=== PATIENT | female | born 1980 | race Caucasian/White ===

== ENCOUNTER 2017-11-13 09:02 | Emergency (ER) ==
[2017-11-13 09:14] VITALS: BP 104/72; TEMP 97.4; BMI 23.6
--- NOTE | 2017-11-13 09:23 | ED.PDOC ---
General ED Provider: Dr. ALLEY CALDERON Chief Complaint: Respiratory Complaint Stated Complaint: Cough and congestion. States evaluated by her pcp in [place] last week and had MRI scan to evaluate headache . Was dx with acute sinusitis which was identified on CT scan. Started on Cefuoxime 500mg bid. Now continues to have experiece cough and congeston. Denies fever or chills. Time Seen by Physician: 09:45 Mode of Arrival: Walk-In Information Source: Patient Exam Limitations: No limitations Primary Care Provider: MARIUM DWEEY Nursing and Triage Documentation Reviewed and Agree: Yes Does patient meet sepsis criteria?: No System Inflammatory Response Syndrome: Not Applicable Sepsis Protocol: For patient's 13 years and over: Temp is 96.8 and below OR 101 and greater Pulse >90 BPM Resp >20/minute Acutely Altered Mental Status Are patient's symptoms suggestive of a new infection, such as: -Pneumonia -Skin, Soft Tissue -Endocarditis -UTI -Bone, Joint Infection -Implantable Device -Acute Abdominal Infection -Wound Infection -Meningitis -Blood Stream Catheter Infection -Unknown Respiratory Complaint Exam - Respiratory Complaint/Exam Symptoms Are: Still present Timing: Constant Initial Severity: Moderate Current Severity: Moderate Location: Throat, Chest Character: Reports: Non-productive cough Aggravating: Reports: URI Associated Signs and Symptoms: Reports: Sinus discomfort. Denies: Rapid breathing, Dyspnea, Fever, Chills, Chest pain, Pleuritic chest pain, Wheezing, Hemoptysis, Dizziness, Calf pain, Calf swelling, Edema, URI, Nasal congestion, Hoarseness, Vomiting, Sore throat, Weight loss, Decreased oral intake, Increased thirst, Increased appetite, Increased urination Related History: Reports: Similar episode Related Surgical History: Reports: None Pulmonary Embolism Risk Factors: None Cardiac Risk Factors: Reports: None Pseudomonas Risk Factors: Reports: None Tuberculosis Risk Factors: Reports: None Status Asthmaticus Risk Factors: Reports: None Home Oxygen Use: No Current Antibiotic Use: Yes Current Asthma Medication Use: No Respiratory Distress: None Inadequate Respiratory Effort: No Dysphagia Present: No Stridor Present: No JVD Present: No Accessory Muscle Use: No Retractions: Not Present Diminished Breath Sounds: No Differential Diagnoses: Sinusitis Review of Systems - Review Of Systems Constitutional: Reports: No symptoms, Malaise Eyes: Reports: No symptoms Ears, Nose, Mouth, Throat: Reports: No symptoms Respiratory: Reports: No symptoms, Cough Cardiac: Reports: No symptoms GI: Reports: No symptoms : Reports: No symptoms Musculoskeletal: Reports: No symptoms Skin: Reports: No symptoms Neurological: Reports: No symptoms Endocrine: Reports: No symptoms Hematologic/Lymphatic: Reports: No symptoms All Other Systems: Reviewed and Negative Past Medical History - Past Medical History Previously Healthy: Yes Endocrine: Reports: None Cardiovascular: Reports: None Respiratory: Reports: None Hematological: Reports: None Gastrointestinal: Reports: None Genitourinary: Reports: None Neuro/Psych: Reports: None Musculoskeletal: Reports: None Cancer: Reports: None Last Menstrual Period: unknown - Surgical History General Surgical History: Reports: None - Family History Family History: Reports: None - Social History Smoking Status: Former smoker Hx Substance Use: No Alcohol Screening: None Physical Exam - Physical Exam Appearance: Ill-appearing Ill-appearing: Mild Pain Distress: None ENT: Ears normal, Nose normal, Erythema (oral pharynx without exudate) Respiratory: Airway patent, Breath sounds clear, Breath sounds equal, Respirations nonlabored Cardiovascular: RRR, Pulses normal, No rub, No murmur GI/: Soft, Nontender, No masses, Bowel sounds normal, No Organomegaly Musculoskeletal: Normal strength, ROM intact, No edema, No calf tenderness Skin: Warm, Dry, Normal color Neurological: Sensation intact, Motor intact, Reflexes intact, Cranial nerves intact, Alert, Oriented Psychiatric: Affect appropriate, Mood appropriate Critical Care Note - Critical Care Note Total Time (mins): 0 Course - Course Hematology/Chemistry: 11/13/17 10:55 11/13/17 10:55 Orders, Labs, Meds: Lab Review 11/13/17 11/13/17 10:55 10:55 WBC 4.92 RBC 4.74 Hgb 14.5 Hct 42.6 MCV 89.9 MCH 30.6 MCHC 34.0 RDW Coeff of Dileep 12.7 Plt Count 282 Immature Gran % (Auto) 0.2 Neut % (Auto) 57.3 Lymph % (Auto) 30.1 [place] % (Auto) 10.6 H Eos % (Auto) 0.8 Baso % (Auto) 1.0 Immature Gran # (Auto) 0.0 Neut # (Auto) 2.8 Lymph # (Auto) 1.5 [place] # (Auto) 0.5 Eos # (Auto) 0.0 Baso # (Auto) 0.1 ESR Pending Sodium 138.9 Potassium 3.77 Chloride 103.3 Carbon Dioxide 28.7 Anion Gap 10.67 BUN 7.8 Creatinine 0.86 Estimated GFR (MDRD) 75.00 BUN/Creatinine Ratio 9.06 Glucose 92.0 Calcium 9.29 Total Bilirubin 0.27 AST 24.1 ALT 18.4 Alkaline Phosphatase 108.2 Total Protein 7.26 Albumin 4.07 Globulin 3.19 Albumin/Globulin Ratio 1.27 Orders Category Date Time Status CBC W/ AUTO DIFF Stat LAB 11/13/17 10:55 Results CMP [COMPREHENSIVE METABOLIC PANEL] Stat LAB 11/13/17 10:55 Completed ESR Stat LAB 11/13/17 10:55 Results CHEST, 1V AP ONLY Stat RADS 11/13/17 10:35 Completed Vital Signs: Temp Pulse Resp BP Pulse Ox 11/13/17 09:03 97.4 F L 93 H 20 104/72 96 Departure - Departure Time of Disposition: 11:30 Disposition: HOME SELF-CARE Discharge Problem: Sinusitis, Pharyngitis Instructions: Antihistamine/Decongestant (By mouth), Sinusitis (ED) Condition: Fair Pt referred to PMD for follow-up: Yes (1 week) IPMP verified?: No Additional Instructions: Remain on antibiotics Begin Steroid Dose Pack MEDROL DOSE PACK - TAKE DIRECTED Mucinex otc twice daily Prescriptions: Methylprednisolone [Medrol Dosepak] 4 mg PO DIRECTED #1 tab.ds.pk Allergies/Adverse Reactions: Allergies codeine Adverse Reaction (Verified 11/13/17 09:13) Home Medications: Ambulatory Orders Dextroamphetamine/Amphetamine [Adderall 15 mg Tablet] 15 mg PO DAILY 11/13/17 Diazepam [Valium] 10 mg PO BEDTIME 11/13/17 Hydrocodone/Acetaminophen [Hydrocodon-Acetaminophn 10-325] 1 each PO TID PRN Methylprednisolone [Medrol Dosepak] 4 mg PO DIRECTED #1 tab.ds.pk 11/13/17 Disposition Discussed With: Patient, Family
--- NOTE | 2017-11-13 10:51 | DI ---
EXAM: Chest one view, frontal view only. HISTORY: Cough. COMPARISON: 02/13/2010. FINDINGS: The heart size is normal. There is no pulmonary vascular congestion. The lungs are clear . No pleural effusion or pneumothorax is seen. No acute osseous abnormality is identified. Since t he prior study, there has been no significant interval change. IMPRESSION: No acute cardiopulmonary process.
== END 2017-11-13 11:46 | disposition home or self-care (01) ==
LOC: ED 09:02
DX: J32.9 Chronic sinusitis, unspecified (principal); J02.9 Acute pharyngitis, unspecified
CPT/HCPCS: 36415; 80053; 85025; 85651; 99283

== ENCOUNTER 2018-01-03 18:38 | Emergency (ER) ==
[2018-01-03 18:45] VITALS: BMI 23.8
[2018-01-03] MEDS ORDERED: DILAUDID 1 MG/ML SYRINGE IVP STA (19:06)
[2018-01-03] MEDS ORDERED: SODIUM CHLORIDE 1,000 ML IV STA (19:06)
[2018-01-03] MEDS ORDERED: PROTONIX IV IVP STA (19:06)
[2018-01-03] MEDS ORDERED: ZOFRAN 4 MG/2 ML IVP STA (19:06)
--- NOTE | 2018-01-03 19:11 | ED.PDOC ---
General ED Provider: Dr. JHONATHAN DAVID Chief Complaint: Abdominal Pain Stated Complaint: Patient is a 37 year old female who states jerald she has had severe progressive right lower quadrant abdominal pain for 4 days. She was seen at the clinic but has not improved. Time Seen by Physician: 19:09 Mode of Arrival: Walk-In Information Source: Patient Exam Limitations: No limitations Primary Care Provider: MARIUM DEWEY Nursing and Triage Documentation Reviewed and Agree: Yes Does patient meet sepsis criteria?: Yes If yes, has appropriate treatment been initiated?: Yes System Inflammatory Response Syndrome: Temp 96.8F or Lower, Pulse >90 BPM Sepsis Protocol: For patient's 13 years and over: Temp is 96.8 and below OR 101 and greater Pulse >90 BPM Resp >20/minute Acutely Altered Mental Status Are patient's symptoms suggestive of a new infection, such as: -Pneumonia -Skin, Soft Tissue -Endocarditis -UTI -Bone, Joint Infection -Implantable Device -Acute Abdominal Infection -Wound Infection -Meningitis -Blood Stream Catheter Infection -Unknown GI Complaint Exam - Abdominal Pain Complaint/Exam Onset: Gradual Duration: 3-4 days Symptoms Are: Still present Timing: Constant Initial Severity: Moderate Current Severity: Severe Location of Pain: RLQ, Suprapubic Radiates To: Reports: Back Character: Reports: Aching, Throbbing Aggravating: Reports: None Alleviating: Reports: None Associated Signs and Symptoms: Reports: Nausea, Vomiting. Denies: Diaphoresis, Fever, Cough, Chest pain, Dizziness, Back pain, Constipation, Blood in stool, Dysuria, Urinary frequency, Decreased urine output, Decreased appetite, Vaginal bleeding, Vaginal discharge, Diarrhea, Sore throat, Decreased activity AAA Risk Factors: Reports: None Cardiac Risk Factors: Reports: None Ectopic Risk Factors: Reports: None Ovarian Torsion Risk Factors: Reports: Hysterectomy Surgical Obstruction Risk Factors: Reports: Bilious emesis, Prior abdominal surgery Related Surgical History: Reports: Cholecystectomy, Appendectomy Patient Rh Status: Unknown Abdominal Findings: Present: Other (mild tenderness to palpation ) Differential Diagnoses: Bowel Obstruction, UTI Review of Systems - Review Of Systems Constitutional: Reports: No symptoms Eyes: Reports: No symptoms Ears, Nose, Mouth, Throat: Reports: No symptoms Respiratory: Reports: No symptoms Cardiac: Reports: No symptoms GI: Reports: Abdominal pain, Nausea, Vomiting : Reports: Dysuria Musculoskeletal: Reports: No symptoms Skin: Reports: No symptoms Neurological: Reports: Anxiety Endocrine: Reports: No symptoms Hematologic/Lymphatic: Reports: No symptoms All Other Systems: Reviewed and Negative Past Medical History - Past Medical History Previously Healthy: Yes Endocrine: Reports: None Cardiovascular: Reports: None Respiratory: Reports: None Hematological: Reports: None Gastrointestinal: Reports: None Genitourinary: Reports: None Neuro/Psych: Reports: None Musculoskeletal: Reports: None Cancer: Reports: None Last Menstrual Period: none - Surgical History General Surgical History: Reports: Hysterectomy, , Appendectomy, Cholecystectomy, Orthopedic (Knee reconstruction ) - Family History Family History: Reports: None - Social History Smoking Status: Former smoker Hx Substance Use: No Alcohol Screening: None - Immunizations Tetanus Shot up to Date: Yes Physical Exam - Physical Exam Appearance: Ill-appearing Ill-appearing: Moderate Pain Distress: Severe Neck: Supple Respiratory: Airway patent, Breath sounds clear, Breath sounds equal, Respirations nonlabored Cardiovascular: No rub, No murmur, Tachycardia GI/: Soft, Tender (mild ) Musculoskeletal: Normal strength, ROM intact, No edema, No calf tenderness Skin: Warm, Dry, Normal color Neurological: Sensation intact, Motor intact, Reflexes intact, Cranial nerves intact, Alert, Oriented Psychiatric: Anxious Interpretation - Radiology Interpretation Radiology Interpretation By: Radiologist Radiology Results: No acute changes Exam Interpreted: CT Scan Critical Care Note - Critical Care Note Total Time (mins): 0 Course - Course Hematology/Chemistry: 01/03/18 19:10 01/03/18 19:10 Orders, Labs, Meds: Lab Review 01/03/18 01/03/18 01/03/18 18:50 19:10 19:10 WBC 14.20 H RBC 4.55 Hgb 13.7 Hct 39.7 MCV 87.3 MCH 30.1 MCHC 34.5 RDW Coeff of Dileep 12.8 Plt Count 349 Immature Gran % (Auto) 0.4 Neut % (Auto) 79.7 Lymph % (Auto) 12.5 [place] % (Auto) 6.8 Eos % (Auto) 0.1 Baso % (Auto) 0.5 Immature Gran # (Auto) 0.1 Neut # (Auto) 11.3 H Lymph # (Auto) 1.8 [place] # (Auto) 1.0 Eos # (Auto) 0.0 Baso # (Auto) 0.1 Sodium 135.6 L Potassium 3.62 Chloride 101.7 Carbon Dioxide 26.6 Anion Gap 10.92 BUN 13.6 Creatinine 1.04 Estimated GFR (MDRD) 60.00 BUN/Creatinine Ratio 13.07 Glucose 114.2 H Lactic Acid Calcium 9.43 Total Bilirubin 0.79 AST 24.5 ALT 17.3 Alkaline Phosphatase 123.7 Total Protein 7.34 Albumin 4.20 Globulin 3.14 Albumin/Globulin Ratio 1.33 Amylase 60.1 Lipase 44.9 Procalcitonin Urine Color Yellow Urine Clarity Cloudy Urine pH 6.0 Ur Specific [place] 1.020 Urine Protein 2+ Urine Glucose (UA) Negative Urine Ketones Negative Urine Blood 2+ Urine Nitrite Negative Urine Bilirubin Negative Urine Urobilinogen 0.2 Ur Leukocyte Esterase 1+ Urine Microscopic RBC 5-10 Urine Microscopic WBC 10-20 Ur Squamous Epith Cells 2-5 Urine Bacteria Trace 01/03/18 01/03/18 19:10 19:10 WBC RBC Hgb Hct MCV MCH MCHC RDW Coeff of Dileep Plt Count Immature Gran % (Auto) Neut % (Auto) Lymph % (Auto) [place] % (Auto) Eos % (Auto) Baso % (Auto) Immature Gran # (Auto) Neut # (Auto) Lymph # (Auto) [place] # (Auto) Eos # (Auto) Baso # (Auto) Sodium Potassium Chloride Carbon Dioxide Anion Gap BUN Creatinine Estimated GFR (MDRD) BUN/Creatinine Ratio Glucose Lactic Acid 1.33 Calcium Total Bilirubin AST ALT Alkaline Phosphatase Total Protein Albumin Globulin Albumin/Globulin Ratio Amylase Lipase Procalcitonin 0.18 Urine Color Urine Clarity Urine pH Ur Specific [place] Urine Protein Urine Glucose (UA) Urine Ketones Urine Blood Urine Nitrite Urine Bilirubin Urine Urobilinogen Ur Leukocyte Esterase Urine Microscopic RBC Urine Microscopic WBC Ur Squamous Epith Cells Urine Bacteria Orders Category Date Time Status ED IV/MEDIPORT/POWERPORT .ONCE EMERGENCY 01/03/18 19:06 Active AMYLASE Stat LAB 01/03/18 19:10 Completed BLOOD CULTURE (ED ONLY) Stat LAB 01/03/18 19:10 Received CBC W/ AUTO DIFF Stat LAB 01/03/18 19:10 Completed COMPREHENSIVE METABOLIC PANEL Stat LAB 01/03/18 19:10 Completed LACTIC ACID Stat LAB 01/03/18 19:10 Completed LIPASE Stat LAB 01/03/18 19:10 Completed PROCALCITONIN Stat LAB 01/03/18 19:10 Received URINALYSIS C & S IF INDICATED Stat LAB 01/03/18 18:50 Completed URINE CULTURE Stat LAB 01/03/18 19:39 Received 0.9 % Sodium Chloride [Saline Flush] MEDS 01/03/18 19:06 Ordered 1 syr IVF PRN PRN Hydromorphone HCl [Dilaudid 1 mg/ml Syringe] MEDS 01/03/18 19:43 Stat 1 mg IM ONCE STA Hydromorphone HCl [Dilaudid 1 mg/ml Syringe] MEDS 01/03/18 19:06 Discontinued 1 mg IVP ONCE STA Ketorolac Tromethamine [Toradol] MEDS 01/03/18 19:43 Stat 30 mg IVP ONCE STA Ondansetron HCl/Pf [Zofran 4 mg/2 ml] MEDS 01/03/18 19:06 Discontinued 4 mg IVP ONCE STA Pantoprazole Sodium [Protonix IV] MEDS 01/03/18 19:06 Discontinued 40 mg IVP ONCE STA Sodium Chloride 0.9% [Sodium Chloride] 1,000 ml MEDS 01/03/18 19:[address] ABD/PEL WO RENAL STONE PROT Stat RADS 01/03/18 19:06 Ordered Medications Generic Name Dose Route Start Last Admin Trade Name Freq PRN Reason Stop Dose Admin Sodium Chloride 1 syr 01/03/18 19:06 Saline Flush IVF PRN PRN To flush IV Discontinued Medications Generic Name Dose Route Start Last Admin Trade Name Freq PRN Reason Stop Dose Admin Hydromorphone HCl 1 mg 01/03/18 19:06 01/03/18 19:16 Dilaudid 1 Mg/Ml Syringe IVP 01/03/18 19:07 1 mg ONCE STA Administration Hydromorphone HCl 1 mg 01/03/18 19:43 Dilaudid 1 Mg/Ml Syringe IM 01/03/18 19:44 ONCE STA Sodium Chloride 1,000 mls @ 1,000 mls/hr 01/03/18 19:06 01/03/18 19:16 Sodium Chloride IV 01/03/18 20:05 1,000 mls/hr BOLUS STA Administration Ketorolac Tromethamine 30 mg 01/03/18 19:43 01/03/18 19:49 Toradol IVP 01/03/18 19:44 30 mg ONCE STA Administration Ondansetron HCl 4 mg 01/03/18 19:06 01/03/18 19:16 Zofran 4 Mg/2 Ml IVP 01/03/18 19:07 4 mg ONCE STA Administration Pantoprazole Sodium 40 mg 01/03/18 19:06 01/03/18 19:16 Protonix Iv IVP 01/03/18 19:07 40 mg ONCE STA Administration Vital Signs: Temp Pulse Resp BP Pulse Ox 01/03/18 19:19 92 H 117/69 01/03/18 18:39 100.8 F H 111 H 22 118/73 97 Departure - Departure Time of Disposition: 21:00 Disposition: HOME SELF-CARE Discharge Problem: Abdominal pain UTI (urinary tract infection) Qualifiers: Urinary tract infection type: acute cystitis Hematuria presence: with hematuria Qualified Code(s): N30.01 - Acute cystitis with hematuria Instructions: Acute Abdominal Pain (ED), Urinary Tract Infection in Women (ED) Condition: Stable Pt referred to PMD for follow-up: Yes IPMP verified?: No Additional Instructions: Take pain medications as prescribed Follow up with PCP in 3 days Prescriptions: Hydrocodone Bit/Acetaminophen [[place] 5-325] 1 each PO Q6HR PRN #15 tablet PRN Reason: severe pain Levofloxacin [Levaquin] 500 mg PO DAILY #7 tablet Allergies/Adverse Reactions: Allergies codeine Adverse Reaction (Verified 11/13/17 09:13) Home Medications: Ambulatory Orders Dextroamphetamine/Amphetamine [Adderall 15 mg Tablet] 15 mg PO DAILY 11/13/17 Diazepam [Valium] 10 mg PO BEDTIME 11/13/17 Hydrocodone/Acetaminophen [Hydrocodon-Acetaminophn 10-325] 1 each PO TID PRN Hydrocodone Bit/Acetaminophen [[place] 5-325] 1 each PO Q6HR PRN #15 tablet Levofloxacin [Levaquin] 500 mg PO DAILY #7 tablet 01/03/18 Disposition Discussed With: Patient
[2018-01-03] MEDS ORDERED: TORADOL IVP STA (19:43)
[2018-01-03] MEDS ORDERED: DILAUDID 1 MG/ML SYRINGE IM STA (19:43)
--- NOTE | 2018-01-03 19:57 | CT ---
EXAM: CT scan of the abdomen and pelvis without contrast HISTORY: Right lower quadrant pain TECHNIQUE: Helical imaging of the abdomen pelvis was performed without contrast. 3 mm thin axial im ages and coronal and sagittal reconstructions were provided for interpretation. FINDINGS: No definite obstructing ureteral calculi are seen. The ureters are normal in caliber. Th e small and large bowel loops are normal caliber. There has been previous cholecystectomy. There is no free air. No retroperitoneal abnormalities are seen. The appendix was not seen. No definite in flammatory changes are seen in the right lower quadrant. Surgical clips are seen along the cecum and this may represent previous appendectomy. The helical images obtained through the pelvis demonstrate a normal appearance of the rectum, urinary bladder. There is no free fluid seen within the pelvis. There has been previous appendectomy. Been previous hysterectomy. Lung bases are clear. No lytic or blastic lesions are seen within the osseo us structures. IMPRESSION: There is no bowel obstruction or acute inflammatory change seen within the abdomen and p alma. There is no ureteral obstruction. Previous hysterectomy and previous appendectomy and previous cholecystectomy.
[2018-01-03] MEDS ORDERED: LEVAQUIN 500 MG in PREMIX 100 ML D5W 1 BAG IV STA (20:08)
[2018-01-03] MEDS ORDERED: LEVAQUIN 100 ML IV ONE (20:15)
[2018-01-03] MEDS ORDERED: BENTYL IM STA (20:30)
[2018-01-03] MEDS ORDERED: PHENERGAN 25 MG/ML VIAL 25 MG in SODIUM CHLORIDE 50 ML IV STA (20:54)
[2018-01-03] MEDS ORDERED: PHENERGAN 25 MG/ML VIAL ONE (20:57)
[2018-01-03 21:36] VITALS: BP 108/76; TEMP 99.2
== END 2018-01-03 21:30 | disposition home or self-care (01) ==
LOC: ED 18:38
DX: N30.01 Acute cystitis with hematuria (principal)
CPT/HCPCS: 36415; 74176; 80053; 81001; 82150; 83605; 83690; 84145; 85025; 87040; 87086; 96361; 96365; 96366; 96367; 96372; 96375; 96376; 99284